=== PATIENT | female | born 1995 | race Caucasian/White ===

== ENCOUNTER 2017-07-22 16:51 | Emergency (ER) | payer OTHER ==
[~2017-07-22] VITALS: Ht 157.5 cm; Wt 68.0 kg
[~2017-07-22 16:51] MED LIST: DOXYCYCLINE HY100 MG PO; IBUPROFEN800 MG PO; NORCO 5-325 TA1 EACH PO; PRENATAL MULTI1 EAC3 PO; PROMETHAZINE HC25 M1 PO
[2017-07-22] MEDS ORDERED: KEFLEX500 MG PO (17:19)
== END 2017-07-22 17:24 | disposition home or self-care (01) ==
LOC: ED 16:51
DX: O99.512 Diseases of the respiratory system complicating pregnancy, second trimester (principal); J06.9 Acute upper respiratory infection, unspecified; Z3A.18 18 weeks gestation of pregnancy
CPT/HCPCS: 99283

== ENCOUNTER → 2018-10-27 | Emergency (ER) | payer OTHER ==
[~2018-10-27] VITALS: Ht 157.5 cm; Wt 68.0 kg
[~2018-10-27] MED LIST changes: +KEFLEX500 MG PO
--- OUTSIDE RECORDS SUMMARY | ~2018-10-27 | XMS | Clinical Summary ---
Demographics + + + | Address | [address] | | | [place] [address] | + + + | Home Phone | | + + + | Preferred Language | Unknown | + + + | Marital Status | Single | + + + | Mu-Ism Affiliation | Unknown | + + + | Race | Unknown | + + + | Ethnic Group | Unknown | + + + Author + + + | Author | [facility] | | | and [place] | + + + | Organization | [facility] | | | and [place] | + + + | Address | Unknown | + + + | Phone | Unavailable | + + + Support + + +---------+ + | Name | Relationship | Address | Phone | + + +---------+ + | Marya Corado | ECON | Unknown | | + + +---------+ + Care Team Providers + +------+ + | Care Toll Collector Name | Role | Phone | + +------+ + | No, Physician | PP | Unavailable | + +------+ + Allergies No Known Allergies Medications + + + +---------+------+------+-------+ | Medication | Sig | Dispensed | Refills | Star | End | Statu | | | | | | t | Date | s | | | | | | Date | | | + + + +---------+------+------+-------+ | oxyCODONE | Take 1-3 tablets by | 25 | 0 | 07/0 | | Activ | | (ROXICODONE) 5 mg | mouth every 4 hours | tablet | | 2/20 | | e | | tablet | as needed for Pain. | | | 18 | | | + + + +---------+------+------+-------+ | ibuprofen | Take 1 tablet by | 40 | 0 | 07/0 | | Activ | | (ADVIL,MOTRIN) 800 | mouth every 8 hours | tablet | | 2/20 | | e | | MG tablet | as needed for Pain. | | | 18 | | | + + + +---------+------+------+-------+ Active Problems Not on file Immunizations + + + + | Name | Dates Previously Given | Next Due | + + + + | MMR, 2 DOSE | 12/16/2017 (Deferred: ) | | | (PED/ADULT) | | | + + + + | RHO (D) IMMUNE | 12/16/2017 (Deferred: ) | | | GLOBULIN | | | + + + + | TDAP, (ADOL/ADULT) | 12/16/2017 (Deferred: ) | | + + + + Social History + +-------+ +--------+------+ | Tobacco Use | Types | Packs/Day | Years | Date | | | | | Used | | + +-------+ +--------+------+ | Never Smoker | | | | | + +-------+ +--------+------+ + +---+---+---+ | Smokeless Tobacco: | | | | | Never Used | | | | + +---+---+---+ + + +---------+ + | Alcohol Use | Drinks/We | oz/Week | Comments | | | ek | | | + + +---------+ + | No | | | | + + +---------+ + + + + | Sex Assigned at | Date Recorded | | | | + + + | Not on file | | + + + + + + + | Job Start Date | Occupation | Industry | + + + + | Not on file | Not on file | Not on file | + + + + + + + + | Travel History | Travel Start | Travel End | + + + + + + | No recent travel history available. | + + Last Filed Vital Signs + + + + | Vital Sign | Reading | Time Taken | + + + + | Blood Pressure | 120/85 | 12/17/20171236 PDT | + + + + | Pulse | 85 | 12/17/20171236 PDT | + + + + | Temperature | 36.5 C (97.7 F) | 12/17/20171236 PDT | + + + + | Respiratory Rate | 16 | 12/17/20171236 PDT | + + + + | Oxygen Saturation | 100% | 12/17/2017 1237 PDT | + + + + | Inhaled Oxygen | - | - | | Concentration | | | + + + + | Weight | 70.3 kg (155 lb) | 12/16/20171629 PDT | + + + + | Height | 157.5 cm (5' 2") | 12/16/20171629 PDT | + + + + | Body Mass Index | 28.35 | 12/16/20171629 PDT | + + + + Plan of Treatment + + + + + | Health Maintenance | Due Date | Last Done | Comments | + + + + + | Vaccine: HPV (1 - | | | | | Female 3-dose | 1 | | | | series) | | | | + + + + + | Vaccine: | | | | | Dtap/Tdap/Td (1 - | 5 | | | | Tdap) | | | | + + + + + | Cervical Cancer | | | | | Screening (Pap) | 7 | | | + + + + + | Vaccine: Influenza | | | | | (Season Ended) | 9 | | | + + + + + Results Not on filefrom Last 3 Months Advance Directives Patient has advance care planning documents, and code status on file. For more information, please contact:[facility] [address] + + + + + | Code Status | Date | Date | Comments | | | Activated | Inactivated | | + + + + + | Full Code | 12/16/2017 | 12/16/2017 | | | | 15:59 | 17:47 | | + + + + +
--- OUTSIDE RECORDS SUMMARY | ~2018-10-27 | XMS | Clinical Summary ---
Demographics + + + | Address | [address] | | | [place] [address] | + + + | Home Phone | | + + + | Preferred Language | Unknown | + + + | Marital Status | Single | + + + | Jewish Affiliation | Unknown | + + + | Race | Unknown | + + + | Ethnic Group | Unknown | + + + Author + + + | Author | [facility] | | | and [place] | + + + | Organization | [facility] | | | and [place] | [...] Team Providers + +------+ + | Care Quality Assurance Monitor Chassis Name | Role | Phone | + [...] information, please contact:[facility] [address] + + + + + | Code Status | Date | Date | Comments | | | Activated | Inactivated | | + + + + + | Full Code | 12/16/2017 | 12/16/2017 | | | | 15:59 | 17:47 | | + + + + +
== END ==
LOC: ED 11:05
DX: S92.002A Unspecified fracture of left calcaneus, initial encounter for closed fracture (principal); Z90.89 Acquired absence of other organs; X50.9XXA Other and unspecified overexertion or strenuous movements or postures, initial encounter
CPT/HCPCS: 73610; 73630; 99283

== ENCOUNTER 2020-02-17 09:49 | Emergency (ER) | payer OTHER ==
[~2020-02-17] VITALS: Ht 157.5 cm; Wt 61.2 kg
[2020-02-17] MEDS ORDERED: PREDNISONE20 MG PO (11:00)
[2020-02-17] MEDS ORDERED: NORCO 5-325 TA1 EACH PO (11:00)
== END 2020-02-17 12:00 | disposition home or self-care (01) ==
LOC: ED 09:49
DX: M54.42 Lumbago with sciatica, left side (principal)
CPT/HCPCS: 72110; 96372; 99283-25; J1100; J1885

== ENCOUNTER 2020-12-30 06:36 | Emergency (ER) | payer SELFPAY ==
[~2020-12-30] VITALS: Ht 157.5 cm; Wt 64.3 kg
[~2020-12-30 06:36] MED LIST changes: +PREDNISONE20 MG PO
== END 2020-12-30 08:04 | disposition home or self-care (01) ==
LOC: ED 06:36
DX: K29.70 Gastritis, unspecified, without bleeding (principal); Z88.0 Allergy status to penicillin
CPT/HCPCS: 81001; 99284

== ENCOUNTER 2020-12-30 21:32 | Emergency (ER) | payer SELFPAY ==
[~2020-12-30] VITALS: Ht 157.5 cm; Wt 64.0 kg
--- OUTSIDE RECORDS SUMMARY | 2020-12-30 21:40 | XMS ---
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 Brown has no Care Guidelines for this patient. [place] [facility] MO.) [facility] NOTE: Visits indicate total known visits. ED/C VISIT TRACKING (12 MO.) [facility]2020 [facility] [place] [facility] COMPLAINT: - STOMACH PAIN 12/30/2020 06:37 [facility] [place] TYPE: Emergency COMPLAINT: - L SIDE PAIN 02/17/2020 09:52 [facility] [place] TYPE: Emergency COMPLAINT: - BACK INJURY DIAGNOSES: - Low back pain - Lumbago with sciatica, left side INPATIENT VISIT TRACKING (12 MO.) No inpatient visits to display in this time frame [id number]
[2021-01-01] MEDS ORDERED: ZANTAC-360 (FAM10 MG PO (11:39)
[2021-01-01] MEDS ORDERED: ONDANSETRON ODT4 MG PO (14:38)
== END 2020-12-31 01:43 | disposition home or self-care (01) ==
LOC: ED 21:32
DX: K30 Functional dyspepsia (principal); F41.9 Anxiety disorder, unspecified; Z88.0 Allergy status to penicillin; Z79.899 Other long term (current) drug therapy
CPT/HCPCS: 80053; 81001; 83690; 84703; 85025; 99284

== ENCOUNTER 2021-01-01 11:19 | Emergency (ER) | payer SELFPAY ==
[~2021-01-01] VITALS: Ht 157.5 cm; Wt 64.0 kg
--- OUTSIDE RECORDS SUMMARY | 2021-01-01 11:26 | XMS ---
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 [place] has no Care Guidelines for this patient. [place] [facility] 4 NOTE: Visits indicate total known visits. ED/C VISIT TRACKING (12 MO.) 01/01/2021 11:[facility] [place] [facility] COMPLAINT: - ABD PAIN, NAUSEA, DIZZYNESS 12/30/2020 21:33 [facility] [place] TYPE: Emergency COMPLAINT: - ABDOMINAL PAIN 12/30/2020 06:37 [facility] [place] TYPE: Emergency COMPLAINT: - L SIDE PAIN 02/17/2020 09:52 [facility] [place] TYPE: Emergency COMPLAINT: - BACK INJURY DIAGNOSES: - Low back pain - Lumbago with sciatica, left side INPATIENT VISIT TRACKING (12 MO.) No inpatient visits to display in this time frame [id number]
[2021-01-01] MEDS ORDERED: ZANTAC-360 (FAM10 MG PO (11:39)
[2021-01-01] MEDS ORDERED: ONDANSETRON ODT4 MG PO (14:38)
== END 2021-01-01 14:52 | disposition home or self-care (01) ==
LOC: ED 11:19
DX: R10.13 Epigastric pain (principal); R19.7 Diarrhea, unspecified; R11.0 Nausea; Z79.899 Other long term (current) drug therapy; Z88.0 Allergy status to penicillin
CPT/HCPCS: 76705; 80053; 81001; 83690; 84703; 85025; 99284-25

== ENCOUNTER 2022-04-12 15:52 | Emergency (ER) | payer OTHER ==
[~2022-04-12] VITALS: Ht 157.5 cm; Wt 64.0 kg
[~2022-04-12 15:52] MED LIST changes: +ONDANSETRON ODT4 MG PO; +ZANTAC-360 (FAM10 MG PO
--- OUTSIDE RECORDS SUMMARY | 2022-04-12 15:54 | XMS ---
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 VISIT COUNT (12 [address] [facility] [address] [facility] [place] TOTAL 2 NOTE: Visits indicate total known visits. ED/UCC VISIT TRACKING (12 MO.) 04/12/2022 15:52 [facility] [place] TYPE: Emergency COMPLAINT: - RT SHOULDER INJURY 01/29/2022 20:22 [facility] [place] [facility] TYPE: Emergency COMPLAINT: - fell off horse - ribs, sternum and neck pain DIAGNOSES: - Other injury of unspecified body region, initial encounter - fell off horse - ribs, sternum and neck pain - Animal-rider injured by fall from or being thrown from horse in noncollision accident, initial encounter - Fall INPATIENT VISIT TRACKING (12 MO.) No inpatient visits to display in this time frame [id number]
== END 2022-04-12 19:13 | disposition home or self-care (01) ==
LOC: ED 15:52
DX: M25.511 Pain in right shoulder (principal); G89.29 Other chronic pain; X50.0XXA Overexertion from strenuous movement or load, initial encounter; Z88.0 Allergy status to penicillin
CPT/HCPCS: 73030

== ENCOUNTER 2022-06-09 09:56 | Emergency (ER) | payer OTHER ==
[~2022-06-09] VITALS: Ht 157.5 cm; Wt 70.3 kg
--- OUTSIDE RECORDS SUMMARY | 2022-06-09 10:01 | XMS ---
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 VISIT COUNT ([address] [facility] [address] [place] [place] TOTAL 3 NOTE: Visits indicate total known visits. ED/UCC VISIT TRACKING (12 MO.) 06/09/2022 09:57 [facility] [place] TYPE: Emergency COMPLAINT: - VAGINAL BLEEDING 04/12/2022 15:52 [facility] [place] TYPE: Emergency COMPLAINT: - RT SHOULDER INJURY DIAGNOSES: - Overexertion from strenuous movement or load, initial encounter - Other chronic pain - Allergy status to penicillin - Pain in right shoulder [facility]20[facility] Emergency COMPLAINT: - fell off horse [...] visits to display in this time frame [email or web address]
== END 2022-06-09 12:43 | disposition home or self-care (01) ==
LOC: ED 09:56
DX: O20.0 Threatened abortion (principal); Z3A.01 Less than 8 weeks gestation of pregnancy
CPT/HCPCS: 36415; 76801; 76815; 76817; 81001; 84702; 86900; 86901; 99284-25